=== PATIENT | female | born 1945 | race African-American/Black ===

== ENCOUNTER 2017-11-15 16:16 | Emergency (ER) | payer MEDICARE ==
[~2017-11-15] VITALS: Ht 154.9 cm; Wt 52.6 kg
[~2017-11-15 16:16] MED LIST: HYDROCHLOROTHIA25 MG ORAL; IBUPROFEN200 MG ORAL; ZOCOR20 MG ORAL
[2017-11-15] MEDS ORDERED: Acetaminophen 500mg (ES) tab PO ONE (17:00)
[2017-11-15] MEDS ORDERED: TYLENOL EXTRA500 MG ORAL (18:05)
[2017-11-15 18:10] VITALS: BP 144/81
--- NOTE | 2017-11-15 18:29 | Emergency Room Report ---
History of Present Illness General Chief Complaint: Lower Extremity Injury Source: Patient Present Illness HPI 72-year-old female presents ED complaining of left hip pain. States she's had this pain on and off for many years now. Has not been evaluated for this pain. Denies trauma. Denies fall. States pain is dull, 5 out of 10, radiating down the left leg. States pain but is able to walk. No other aggravating or relieving factors. Denies any other associated symptoms Allergies: Coded Allergies: No Known Allergies (Unverified , 11/20/13) Patient History Past Medical History: HTN Last Menstrual Period: na Now: No Immunizations: UTD Reviewed Nursing Documentation: PMH: Agreed; PSxH: Agreed Nursing Documentation-PMH Past Medical History: No History, Except For Hx Hypertension: Yes Review of Systems All Other Systems: negative except mentioned in HPI Physical Exam Vital Signs Date Time Temp Pulse Resp B/P (MAP) Pulse Ox O2 Delivery O2 Flow Rate FiO2 11/15/17 16:18 98.1 69 16 144/81 98 Room Air 98.1 Sp02 EP Interpretation: reviewed, normal General Appearance: no apparent distress, alert, GCS 15, non-toxic Head: normocephalic Eyes: bilateral eye normal inspection, bilateral eye PERRL ENT: normal ENT inspection Neck: normal inspection Respiratory: normal inspection Cardiovascular #1: normal inspection Gastrointestinal: normal inspection Rectal: deferred Genitourinary: no CVA tenderness Musculoskeletal: tender - L hip Neurologic: alert, oriented x3, responsive, motor strength/tone normal, sensory intact, speech normal Psychiatric: judgement/insight normal, memory normal, mood/affect normal, no suicidal/homicidal ideation Skin: normal inspection Lymphatic: normal inspection Medical Decision Making Diagnostic Impression: Primary Impression: Hip pain Qualified Codes: M25.552 - Pain in left hip ER Course Hospital Course 72 yo F presents to ED c/o L hip pain. no trauma Differential diagnoses include: Fracture, dislocation, sprain, contusion Clinical course Patient placed on stretcher. After initial history and physical, I ordered pain medications and Xrays of L hip Xrays prelim read shows no acute fracture/dislocation. evidence of DJD. discussed findings with patient. recommend pain meds, ice, rest. close followup with PMD as outpatient Diagnosis - hip pain Stable and discharged to home with prescription for Tylenol. apply ice, keep elevated. weight bear as tolerated. Followup with PMD. Return to ED if symptoms recur or worsen Other X-Ray Diagnostic Results Other X-Ray Diagnostic Results : X-Ray ordered: L hip # of Views/Limited Vs Complete: 2 View Indication: Pain EP Interpretation: Yes Interpretation: no dislocation, no soft tissue swelling, no fractures, other - DJD noted Impression: Other - DJD Electronically Signed by: Electronically signed by Flaco Olivier MD Last Vital Signs Date Time Temp Pulse Resp B/P (MAP) Pulse Ox O2 Delivery O2 Flow Rate FiO2 11/15/17 18:10 98.1 16 144/81 98 Room Air 208.6 11/15/17 16:18 69 Status: improved Disposition: HOME, SELF-CARE Condition: Stable Scripts Acetaminophen* (TYLENOL EXTRA STRENGTH*) 500 Mg Tablet 500 MG ORAL Q8H PRN for Prn Headache/Temp > 101, #30 TAB 0 Refills Prov: Flaco Olivier MD 11/15/17 Patient Instructions: Hip Pain Flaco Olivier MD Nov 15, 2017 18:29
--- NOTE | 2017-11-16 12:07 | Diagnostic Imaging Report ---
Indications: hip pain Findings: Two views of the left hip were obtained. No acute fracture is demonstrated. Alignment of the hip is within normal limits. Soft tissues are unremarkable. Calcifications in the pelvis noted may be related to uterine fibroid. Impression: Negative for acute injury.
== END 2017-11-15 18:10 | disposition home or self-care (01) ==
LOC: EMR 17:09
DX: M25.552 Pain in left hip (principal); I10 Essential (primary) hypertension
CPT/HCPCS: 73502; 99283